=== PATIENT | female | born 1940 | race Caucasian/White ===

== ENCOUNTER 2017-12-17 14:31 | Emergency (ER) | payer OTHER ==
[~2017-12-17] VITALS: Ht 157.5 cm; Wt 72.1 kg
[2017-12-17 15:01] VITALS: BP 158/71; PULSE 82; RESP 16; TEMP 98.7; O2SAT 97
[2017-12-17 15:09] LABS: BILIRUBIN, URINE NEG (NEG); BLOOD, URINE NEG (NEG); GLUCOSE,URINE NEG (NEG); KETONE, URINE NEG (NEG); NITRITE,URINE NEG (NEG); URINE COLOR YELLOW (YELLW/STRAW); URINE LEUKOCYTE ESTERASE NEG (NEG)
[2017-12-17 15:30] LABS: RBC, URINE 0-3 /hpf (0-3); SQUAMOUS EPITHELIAL CELL URINE 0-5 /hpf (0-5); WBC, URINE 0-2 /hpf (0-5)
[2017-12-17] MEDS ORDERED: METF500T PO (15:32)
[2017-12-17] MEDS ORDERED: HYDR25TA5 PO (15:32)
[2017-12-17] MEDS ORDERED: GLIM4TAB PO (15:32)
[2017-12-17] MEDS ORDERED: SIMV40TA PO (15:32)
[2017-12-17] MEDS ORDERED: CALCTAB33 PO (15:32)
[2017-12-17] MEDS ORDERED: VENL150T PO (15:32)
[2017-12-17] MEDS ORDERED: ASPI-516 CHEW (15:32)
[2017-12-17] MEDS ORDERED: ESTROGENS-METHYLTEST (15:32)
[2017-12-17] MEDS ORDERED: VITA250T3 PO (15:32)
[2017-12-17] MEDS ORDERED: TOPI50TA7 PO (15:32)
[2017-12-17] MEDS ORDERED: PROT40TA PO (15:32)
[2017-12-17] MEDS ORDERED: METR1TAB76 PO (15:32)
[2017-12-17] MEDS ORDERED: VITA200C3 PO (15:32)
[2017-12-17 15:37] VITALS: O2SAT 98
--- NOTE | 2017-12-17 15:38 | PD ---
HPI Chief Complaint: Chest Pain Time Seen by Provider: 15:24 Travel History International Travel<30 days: No Contact w/Intl Traveler<30days: No Traveled to known affect area: No History of Present Illness HPI This patient saw her primary physician today and she was sent here in the office. She complained of anterior chest pressure. She has spells of it on and off for the last 1-2 weeks. Symptoms are not exertional. She is currently pain-free. They last anywhere from 30 seconds to 2 minutes. No chest wall injury. No fever or cough. She has history of A. fib which is paroxysmal. She takes a daily aspirin including today. She had a negative stress test 2 years ago. Symptom severity is moderate. No alleviating factors. No exacerbating factors. PFSH Past Medical History Depression: Yes Diabetes: Yes Patient Takes Glucophage: Yes Diminished Hearing: No Diverticulitis: Yes GERD: Yes Gout: Yes Hypertension: Yes Medical other: Yes (NEPHROPATHY) Migraines: Yes Triglycerides - High: Yes Tetanus Vaccination: > 5 Years Influenza Vaccination: Yes ?: Not Past Surgical History Abdominal Surgery: Yes (blsdder supension) Appendectomy: Yes Hysterectomy: Yes Tonsillectomy: Yes Social History Alcohol Use: No Tobacco Use: No Substance Use: No Allergies-Medications (Allergen,Severity, Reaction): Coded Allergies: levofloxacin (Verified Allergy, Severe, SHE THINKS SHE GOT THRUSH, 12/17/17 ) lisinopril (Verified Allergy, Severe, DOES NOT REMEMBER, 12/17/17) Reported Meds & Prescriptions Reported Meds & Active Scripts Active Reported [Estrogens-Methyltest] Metformin (Metformin HCl) 500 Mg Tab 500 Mg PO BIDPC Protonix (Pantoprazole Sodium) 40 Mg Tab 40 Mg PO DAILY Topiramate 50 Mg Tab 50 Mg PO BID Simvastatin 40 Mg Tab 40 Mg PO HS Hydrochlorothiazide 25 Mg Tab 25 Mg PO DAILY Vitamin C (Ascorbic Acid) 250 Mg Tab 500 Mg PO DAILY Calcium 600+D Plus Minerals (Calcium Carbonate-Vitamin D W/Minerals) 600-400 Mg- Unit Tab 1 Tab PO BID Aspirin 81 Mg Chew 81 Mg CHEW DAILY Vitamin E 200 Unit Cap 400 Units PO DAILY Metronidazole 500 Mg Tab 500 Mg PO BID Glimepiride 4 Mg Tab 4 Mg PO DAILY Take with breakfast or first main meal Venlafaxine ER 24 HR (Venlafaxine HCl) 150 Mg Tab 150 Mg PO DAILY Review of Systems General / Constitutional: No: Fever Eyes: No: Visual changes HENT: No: Headaches Cardiovascular: Positive: Chest Pain or Discomfort, Palpitations, Irregular Rhythm Respiratory: No: Shortness of Breath Gastrointestinal: No: Abdominal Pain Genitourinary: No: Dysuria Musculoskeletal: No: Pain Skin: No Rash Neurologic: No: Weakness Psychiatric: No: Depression Endocrine: No: Polydipsia Hematologic/Lymphatic: No: Easy Bruising Physical Exam Narrative GENERAL: Well-nourished, well-developed patient in no apparent distress. SKIN: Focused skin assessment reveals no rash and nodules. Skin is Warm and dry. HEAD: Atraumatic. Normocephalic. EYES: Pupils equal and round. No scleral icterus. No injection or drainage. ENT: No nasal bleeding or discharge. Mucous membranes pink and moist. NECK: Trachea midline. No JVD. CARDIOVASCULAR: Regular rate and rhythm. No murmur appreciated. RESPIRATORY: No accessory muscle use. Clear to auscultation. Breath sounds equal bilaterally. GASTROINTESTINAL: Abdomen soft, non-tender, nondistended. Hepatic and splenic margins not palpable. MUSCULOSKELETAL: No obvious deformities. No clubbing. No cyanosis. No edema. NEUROLOGICAL: Awake and alert. No obvious cranial nerve deficits. Motor grossly within normal limits. Normal speech. PSYCHIATRIC: Appropriate mood and affect; insight and judgment normal. Data Data Last Documented VS Vital Signs Date Time Temp Pulse Resp B/P (MAP) Pulse Ox O2 Delivery O2 Flow Rate FiO2 12/17/17 15:37 98 Room Air 12/17/17 15:01 98.7 82 16 158/71 (100) Orders Orders Urinalysis - C+S If Indicated (12/17/17 14:40) Electrocardiogram (12/17/17 15:31) Basic Metabolic Panel (Bmp) (12/17/17 15:31) Ckmb (Isoenzyme) Profile (12/17/17 15:31) Complete Blood Count With Diff (12/17/17 15:31) Magnesium (Mg) (12/17/17 15:31) Prothrombin Time / Inr (Pt) (12/17/17 15:31) Act Partial Throm Time (Ptt) (12/17/17 15:31) Troponin I (12/17/17 15:31) Chest, Single Ap (12/17/17 15:31) Ecg Monitoring (12/17/17 15:31) Iv Access Insert/Monitor (12/17/17 15:31) Oximetry (12/17/17 15:31) Sodium Chloride 0.9% Flush (Ns Flush) (12/17/17 15:45) Bedside Glucose DEENA.CSUGAR (12/17/17 15:31) CKMB (12/17/17 15:45) CKMB% (12/17/17 15:45) Labs Laboratory Tests Test 12/17/17 14:50 12/17/17 15:45 Urine Color YELLOW Urine Turbidity CLEAR Urine pH 6.0 Urine Specific [place] 1.025 Urine Protein NEG mg/dL Urine Glucose (UA) NEG mg/dL Urine Ketones NEG mg/dL Urine Occult Blood NEG Urine Nitrite NEG Urine Bilirubin NEG Urine Urobilinogen 0.2 MG/DL Urine Leukocyte Esterase NEG Urine RBC 0-3 /hpf Urine WBC 0-2 /hpf Urine Squamous Epithelial Cells 0-5 /hpf Microscopic Urinalysis Comment CULT NOT INDICATED White Blood Count 4.9 TH/MM3 Red Blood Count 4.78 MIL/MM3 Hemoglobin 14.8 GM/DL Hematocrit 44.0 % Mean Corpuscular Volume 92.1 FL Mean Corpuscular Hemoglobin 31.0 PG Mean Corpuscular Hemoglobin Concent 33.6 % Red Cell Distribution Width 11.6 % Platelet Count 217 TH/MM3 Mean Platelet Volume 8.8 FL Neutrophils (%) (Auto) 63.6 % Lymphocytes (%) (Auto) 25.1 % Monocytes (%) (Auto) 7.7 % Eosinophils (%) (Auto) 2.7 % Basophils (%) (Auto) 0.9 % Neutrophils # (Auto) 3.2 TH/MM3 Lymphocytes # (Auto) 1.2 TH/MM3 Monocytes # (Auto) 0.4 TH/MM3 Eosinophils # (Auto) 0.1 TH/MM3 Basophils # (Auto) 0.0 TH/MM3 CBC Comment DIFF FINAL Differential Comment Prothrombin Time 10.4 SEC Prothromb Time International Ratio 1.0 RATIO Activated Partial Thromboplast Time 24.3 SEC Blood Urea Nitrogen 19 MG/DL Creatinine 0.86 MG/DL Random Glucose 168 MG/DL Calcium Level 9.4 MG/DL Magnesium Level 2.2 MG/DL Sodium Level 141 MEQ/L Potassium Level 3.9 MEQ/L Chloride Level 105 MEQ/L Carbon Dioxide Level 29.3 MEQ/L Anion Gap 7 MEQ/L Estimat Glomerular Filtration Rate 64 ML/MIN Total Creatine Kinase 130 U/L Creatine Kinase MB 1.9 NG/ML Troponin I LESS THAN 0.02 NG/ML MDM Medical Decision Making Medical Screen Exam Complete: Yes Emergency Medical Condition: Yes Medical Record Reviewed: Yes Differential Diagnosis Differential diagnosis includes IN, angina, pericarditis, pleurisy, GERD, anxiety. Narrative Course I have reviewed the patient's electronic medical record. IV placed I reviewed the EKG which shows sinus rhythm without ST elevation I reviewed the chest x-ray is normal Extended cardiac monitoring shows sinus rhythm with occasional ectopic beat CBC is normal Metabolic profile is normal CK is normal Troponin is normal Coagulation studies are normal This patient has multiple risk factors for CAD including diabetes and family history of CAD and hypertension. I recommended 23 hour observation on telemetry and the chest pain center to rule out cardiac cause of her symptoms. Patient is refusing this recommendation will sign out AGAINST MEDICAL ADVICE. I advised her to return if she worsens or changes her mind. She should contact her physician in the morning who sent her here Diagnosis Primary Impression: Chest pressure Additional Impressions: Paroxysmal atrial fibrillation Diabetes mellitus Qualified Codes: E11.9 - Type 2 diabetes mellitus without complications Disposition: 07 AGAINST MEDICAL ADVICE Raman Rivas MD Dec 17, 2017 15:38
[2017-12-17] MEDS ORDERED: SODIUM CHLORIDE 0.9% FLUSH 10 ML FLUSH IVF PRN (15:45)
--- NOTE | 2017-12-17 15:56 | RADRPT ---
EXAM DATE/TIME: 12/17/2017 15:40 [facility] COMPARISON: No previous studies available for comparison. INDICATIONS : Chest pain. MEDICAL HISTORY : None. SURGICAL HISTORY : Fusion, cervical. ENCOUNTER: Initial ACUITY: 1 day PAIN SCORE: 09/18 LOCATION: Bilateral chest FINDINGS: A single view of the chest demonstrates the lungs to be symmetrically aerated without evidence of mas s, infiltrate or effusion. The cardiomediastinal contours are unremarkable. Osseous structures are intact. CONCLUSION: 1. No acute cardiopulmonary disease. Arun Coulter MD on December 17, 2017 at 15:53 Board Certified Radiologist. This report was verified electronically.
[2017-12-17 15:57] LABS: AUTOMATED NEUTROPHIL # 3.2 TH/MM3 (1.8-7.7); BASOPHIL % 0.9 % (0.0-2.0); EOSINOPHIL # 0.1 TH/MM3 (0-0.4); EOSINOPHIL % 2.7 % (0.0-4.0); HEMOGLOBIN 14.8 GM/DL (11.6-15.3); LYMPH % 25.1 % (9.0-44.0); LYMPHOCYTE # 1.2 TH/MM3 (1.0-4.8); MEAN CELL VOLUME 92.1 FL (80.0-100.0); MEAN CORPUSCULAR HGB CONC 33.6 % (32.0-36.0); MEAN PLATELET VOLUME 8.8 FL (7.0-11.0); MONO % 7.7 % (0.0-8.0); MONOCYTE # 0.4 TH/MM3 (0-0.9); NEUT % 63.6 % (16.0-70.0); PLATELET COUNT 217 TH/MM3 (150-450); RED BLOOD COUNT 4.78 MIL/MM3 (4.00-5.30); RED CELL DISTRIBUTION WIDTH 11.6 % (11.6-17.2); WHITE BLOOD COUNT 4.9 TH/MM3 (4.0-11.0)
[2017-12-17 16:11] LABS: CHLORIDE 105 MEQ/L (98-107); SODIUM (NA) 141 MEQ/L (136-145)
[2017-12-17 16:14] LABS: BICARBONATE 29.3 MEQ/L (21.0-32.0); BLOOD UREA NITROGEN 19 MG/DL (7-18); CALCIUM 9.4 MG/DL (8.5-10.1); GLUCOSE,RANDOM 168 MG/DL (74-106); MAGNESIUM 2.2 MG/DL (1.5-2.5)
[2017-12-17 16:15] LABS: PROTHROMBIN TIME - PATIENT 10.4 SEC (9.8-11.6)
[2017-12-17 16:18] LABS: CREATININE 0.86 MG/DL (0.50-1.00); GLOMERULAR FILTRATION RATE 64 ML/MIN (>89)
[2017-12-17 16:22] LABS: TROPONIN I LESS THAN 0.02 NG/ML (0.02-0.05)
[2017-12-17 17:02] VITALS: BP 142/69
--- NOTE | 2017-12-18 21:34 | EKG ---
Date Performed: 12/17/2017 Time Performed: 15:56:37 PTAGE: 77 years EKG: Sinus rhythm POSSIBLE LEFT ATRIAL ENLARGEMENT BORDERLINE ECG NO PREVIOUS TRACING DOCTOR: Marc Hartman Interpretating Date/Time 12/18/2017 21:32:43
== END 2017-12-17 17:05 | disposition left against medical advice (07) ==
LOC: PHED 14:31
DX: R07.89 Other chest pain (principal); F41.8 Other specified anxiety disorders; K21.9 Gastro-esophageal reflux disease without esophagitis; I10 Essential (primary) hypertension; I48.0 Paroxysmal atrial fibrillation; E11.9 Type 2 diabetes mellitus without complications
CPT/HCPCS: 71045; 80048; 81001; 82550; 82552; 83735; 84484; 85025; 85610; 85730; 93005; 99285